=== PATIENT | female | born 1995 | race Caucasian/White ===

== ENCOUNTER 2020-07-17 09:49 | Inpatient (IN) ==
[2020-07-17] MEDS ORDERED: Metoclopramide 10 MG/2 ML VIAL IVP PRN ×2 (10:13→19:50)
[2020-07-17] MEDS ORDERED: Famotidine 20 MG/2 ML VIAL IVP PRN (10:13)
[2020-07-17] MEDS ORDERED: Naloxone 0.4 MG/ML INJ IVP PRN ×3 (10:13→19:50)
[2020-07-17] MEDS ORDERED: Ringers Solution, Lactated 1,000 ML IVC SCH ×2 (10:15→19:50)
[2020-07-17 11:05] LABS: Basophils % 0.3 %; Eosinophils # 0.1 K/mcL (0.0-0.6); Eosinophils % 0.6 %; Hematocrit 41.6 % (35.3-44.9); Hemoglobin 13.4 g/dL (11.5-15.4); Immature Granulocytes % 0.5 % (0-4); Lymphocytes # 2.2 K/mcL (0.6-4.6); Lymphocytes % 19.7 %; Mean Corpuscular HGB Conc 32.2 g/dL (31.6-35.5); Mean Corpuscular Hemoglobin 28.1 pg (28.0-33.3); Mean Corpuscular Volume 87.2 fL (83.0-100.0); Mean Platelet Volume 11.6 fL (9.4-12.4); Monocytes # 0.8 K/mcL (0.0-1.3); Monocytes % 7.2 %; Neutrophils # 7.9 K/mcL (1.6-8.9); Platelet Count 244 K/mcL (140-400); Red Blood Count 4.77 M/mcL (3.82-4.97); Red Cell Distribution Width 13.7 % (11.5-14.5); Segmented Neutrophils % 71.7 %
[2020-07-17 11:08] LABS: Amphetamine Screen,Urine Negative ng/mL (Cutoff=1000); Barbiturate Screen,Urine Negative ng/mL (Cutoff=200); Benzodiazepines Screen,Urine Negative ng/mL (Cutoff=200); Cannabinoid Screen,Urine Negative ng/mL (Cutoff = 50); Cocaine Screen,Urine Negative ng/mL (Cutoff= 300); Opiate Screen,Urine Negative ng/mL (Cutoff=300); Phencyclidine Screen,Urine Negative ng/mL (Cutoff=25)
[2020-07-17] MEDS ORDERED: *HR* FentaNYL (PF) 100 MCG/2 ML VIAL ONE (14:47)
[2020-07-17] MEDS ORDERED: *HR* Phenylephrine 10 MG/ML VIAL ONE (14:47)
[2020-07-17] MEDS ORDERED: *HR* Morphine Sulfate/PF 10 MG/10 ML AMPUL ONE (14:47)
[2020-07-17 15:03] LABS: Adenovirus Not Detected (Not Detect); Bordetella Pertussis Not Detected (Not Detect); Chlamydophila pneumoniae Not Detected (Not Detect); Coronavirus 229E Not Detected (Not Detect); Coronavirus HKU1 Not Detected (Not Detect); Coronavirus NL63 Not Detected (Not Detect); Coronavirus OC43 Not Detected (Not Detect); Human Metapneumovirus Not Detected (Not Detect); Human Rhinovirus/Enterovirus Not Detected (Not Detect); Influenza A Subtype 2009 H1 Not Detected (Not Detect); Influenza B Not Detected (Not Detect); Mycoplasma pneumoniae Not Detected (Not Detect); Parainfluenza Virus 1 Not Detected (Not Detect); Parainfluenza Virus 2 Not Detected (Not Detect); Parainfluenza Virus 3 Not Detected (Not Detect); Parainfluenza Virus 4 Not Detected (Not Detect); Respiratory Syncytial Virus Not Detected (Not Detect); SARS-CoV-2 Not Detected (Not Detect)
[2020-07-17] MEDS ORDERED: *HR* FentaNYL (PF) 100 MCG/2 ML VIAL IVP PRN (16:50)
[2020-07-17] MEDS ORDERED: *HR* OxyCODONE Immed Rel 5 MG TABLET PO PRN (16:50)
[2020-07-17] MEDS ORDERED: Ondansetron 4 MG/2 ML VIAL IVP PRN ×2 (16:50→19:50)
[2020-07-17] MEDS ORDERED: *HR* Meperidine 25 MG/ML SYRINGE IVP PRN (16:50)
[2020-07-17] MEDS ORDERED: *HR* Oxytocin 10 UNIT/ML VIAL IM ONE (16:53)
[2020-07-17] MEDS ORDERED: Acetaminophen IV 1,000 MG/100 ML BAG IVPB ONE (17:24)
[2020-07-17] MEDS ORDERED: Ketorolac 30 MG/ML VIAL ONE (17:25)
[2020-07-17] MEDS ORDERED: Oxytocin 20 units/ LR 1000 mL 20 UNIT/1,000 ML BAG IVC ONE ×2 (19:28→23:05)
[2020-07-17] MEDS ORDERED: Rho Immune Globulin 1,500 UNIT SYRINGE IM ONE (19:50)
[2020-07-17] MEDS ORDERED: Simethicone 80 MG TAB.CHEW PO PRN (19:50)
[2020-07-17] MEDS ORDERED: Sennosides 8.6 MG TABLET PO PRN (19:50)
[2020-07-17] MEDS ORDERED: Oxytocin 20 units/ LR 1000 mL 20 UNIT/1,000 ML BAG IVC SCH ×2 (19:50)
[2020-07-17] MEDS ORDERED: *HR* Midazolam HCl 2 MG/2 ML VIAL ONE (21:03)
[2020-07-17] MEDS ORDERED: Lidocaine -MPF 1% 5 ML AMPUL ONE (21:03)
[2020-07-17] MEDS ORDERED: *HR* Propofol 200 MG/20 ML VIAL IVP ONE (21:03)
[2020-07-17] MEDS ORDERED: Famotidine 20 MG/2 ML VIAL ONE (21:22)
[2020-07-17] MEDS ORDERED: *HR* HYDROMORPHONE 2 MG/ML VIAL ONE (21:54)
[2020-07-18 05:19] LABS: Basophils % 0.3 %; Eosinophils % 0.1 %; Hematocrit 35.1 % (35.3-44.9); Hemoglobin 11.9 g/dL (11.5-15.4); Immature Granulocytes % 0.6 % (0-4); Lymphocytes # 1.9 K/mcL (0.6-4.6); Lymphocytes % 12.9 %; Mean Corpuscular HGB Conc 33.9 g/dL (31.6-35.5); Mean Corpuscular Hemoglobin 29.8 pg (28.0-33.3); Mean Platelet Volume 11.6 fL (9.4-12.4); Monocytes # 1.1 K/mcL (0.0-1.3); Neutrophils # 11.2 K/mcL (1.6-8.9); Platelet Count 198 K/mcL (140-400); Red Blood Count 3.99 M/mcL (3.82-4.97); Red Cell Distribution Width 13.5 % (11.5-14.5); Segmented Neutrophils % 78.1 %; White Blood Count 14.3 K/mcL (4.3-11.1)
[2020-07-18] MEDS: Ibuprofen 600 MG TABLET PO PRN ×3 (06:36→23:43)
[2020-07-18] MEDS: Prenatal Vit/FA 1 EACH TABLET PO SCH (08:22)
[2020-07-18] MEDS: *HR* OxyCODONE/APAP 5/325 TABLET PO PRN ×2 (18:20→23:43)
[2020-07-19] MEDS: Ibuprofen 600 MG TABLET PO PRN (05:39)
[2020-07-19 07:52] VITALS: BP 113/70
[2020-07-19] MEDS: Prenatal Vit/FA 1 EACH TABLET PO SCH (09:14)
[2020-07-19] MEDS: *HR* OxyCODONE/APAP 5/325 TABLET PO PRN (09:14)
== END 2020-07-19 15:21 | disposition home or self-care (01) | DRG 788 ==
LOC: 1NENULAB 09:49 → 1NENUOBS 19:45
PROVIDERS: ADMIT Obstetrics & Gynecology; ATTEND Obstetrics & Gynecology